=== PATIENT | female | born 1990 | race Caucasian/White ===

== ENCOUNTER 2017-09-20 20:50 | Inpatient (IN) | payer OTHER ==
[~2017-09-20 20:50] MED LIST: AMPICILLIN - 1 GM in SODIUM CHLORIDE 100 ML IVPB SCH
[2017-09-20 22:04] LABS: BASO % 1.1 % (0-2.0); HEMATOCRIT 36.6 % (32.4-45.2); HEMOGLOBIN 12.7 GM/dL (10.7-15.3); LYMPH % 26.5 % (8-40); MCH 30.6 pg (25.7-33.7); MCHC 34.7 g/dl (32.0-36.0); MEAN CELL VOLUME 88.3 fl (80-96); MONO % 7.3 % (3.8-10.2); NEUT % 64.1 % (42.8-82.8); PLATELET COUNT 227 K/MM3 (134-434); RBC 4.15 M/mm3 (3.60-5.2); RDW 14.8 % (11.6-15.6); WHITE BLOOD COUNT 9.2 K/mm3 (4.0-10.0)
[2017-09-20 22:26] LABS: ANION GAP 10 (8-16); BLOOD UREA NITROGEN 9 mg/dL (7-18); CALCIUM 8.3 mg/dL (8.5-10.1); CHLORIDE 107 mmol/L (98-107); CO2 21 mmol/L (21-32); CREATININE 0.6 mg/dL (0.55-1.02); GLUCOSE,RANDOM 111 mg/dL (74-106); POTASSIUM 3.5 mmol/L (3.5-5.1); SODIUM 138 mmol/L (136-145)
[2017-09-20 22:27] LABS: INR 0.96 (0.82-1.09); PROTHROMBIN TIME (PATIENT) 10.8 SEC (9.7-13.0)
[2017-09-20 22:30] LABS: ACTIVATED PTT 30.9 SECONDS (26.9-34.4)
[2017-09-20] MEDS ORDERED: DINOPROSTONE 10 MG VAGINAL SUPPOSITORY VG ONE (22:45)
[2017-09-20] MEDS ORDERED: LACTATED RINGERS SOLUTION 1,000 ML IV SCH (22:45)
[2017-09-20 23:09] VITALS: BMI 34.7
[2017-09-20] MEDS ORDERED: AMPICILLIN SODIUM 2 GM VIAL ONE (23:32)
[2017-09-20] MEDS ORDERED: AMPICILLIN - 2 GM in SODIUM CHLORIDE 100 ML IVPB ONE (23:45)
--- NOTE | 2017-09-21 00:30 | HP ---
Past Medical History - Admission History of Present Illness: 27 yo LMP 01/01/18, EDC 09/17/17, @ 40 weeks gestation, admitted for induction of labor. History Source: Patient Limitations to Obtaining History: No Limitations - Past Medical History ...: 5 ...Para: 2 ...Term: 2 ...: 0 ...Spon : 2 ...Induced : 0 ...Multiple Gestation: 0 ...LMP: 01/01/17 ... Weeks Gestation by Dates: 37.3 ...EDC by Dates: 10/08/17 ...EDC by Sono: 09/17/17 - Past Surgical History Past Surgical History: Yes: None Hx Myomectomy: No Hx Transabdominal Cerclage: No - Smoking History Smoking history: Never smoked Have you smoked in the past 12 months: No - Alcohol/Substance Use Hx Alcohol Use: No History of Substance Use: reports: None - Social History Usual Living Arrangement: Yes: With Significant Other History of Recent Travel: No Home Medications - Allergies Allergies/Adverse Reactions: Allergies Allergy/AdvReac Type Severity Reaction Status Date / Time No Known Allergies Allergy Verified 09/17/17 17:33 - Home Medications Home Medications: Ambulatory Orders Vit/Iron Fum/Folic AC [ Tablet] 1 each PO DAILY #60 tablet Ferrous Sulfate 325 mg PO DAILY 09/17/17 Review of Systems - Review of Systems Constitutional: reports: No Symptoms Eyes: reports: No Symptoms HENT: reports: No Symptoms Neck: reports: No Symptoms Cardiovascular: reports: No Symptoms Respiratory: reports: No Symptoms Gastrointestinal: reports: No Symptoms Genitourinary: reports: No Symptoms Breasts: reports: No Symptoms Reported Musculoskeletal: reports: No Symptoms Integumentary: reports: No Symptoms Neurological: reports: No Symptoms Endocrine: reports: No Symptoms Hematology/Lymphatic: reports: No Symptoms Psychiatric: reports: No Symptoms Pain Intensity: 0 Physical Exam - Maternity Vital Signs: Vital Signs Temperature 98.1 F 09/20/17 22:00 Pulse Rate 78 09/20/17 22:00 Respiratory Rate 18 09/20/17 22:00 Blood Pressure 137/75 09/20/17 22:00 O2 Sat by Pulse Oximetry (%) Constitutional: Yes: Well Nourished Eyes: Yes: Conjunctiva Clear HENT: Yes: Atraumatic Neck: Yes: Supple Cardiovascular: Yes: Regular Rate and Rhythm Lungs: Clear to auscultation - Abdominal Exam/OB Number of Fetuses: Single Presentation: Vertex Intensity: Unaware - Vaginal Exam/OB Dilatation (cm): 3-4 Effacement (%): 70 Amniotic Membrane Status: Intact Station: -2 - Physical Exam Musculoskeletal: Yes: WNL Extremities: Yes: WNL ...Motor Strength: WNL Psychiatric: Yes: Alert, Oriented - Labs Lab Results: CBC, BMP 09/20/17 21:30 09/20/17 21:30 Problem List - Problems (1) 40 weeks gestation of Code(s): Z3A.40 - 40 WEEKS GESTATION OF Assessment/Plan IUP @ 40 weeks gestation Admit for cervidil induction
[2017-09-21] MEDS ORDERED: FENTANYL/BUPIVACAINE/NS/PF - PCEA - 50 ML DISP.SYRIN EP ONE (03:18)
[2017-09-21] MEDS ORDERED: AMPICILLIN SODIUM 1 GM VIAL ONE (03:18)
[2017-09-21] MEDS ORDERED: AMPICILLIN - 1 GM in SODIUM CHLORIDE 100 ML IVPB SCH (03:30)
[2017-09-21] MEDS ORDERED: WITCH HAZEL 50% (TUCKS) 40 PAD/JAR PAD TP PRN (03:36)
[2017-09-21] MEDS ORDERED: METHYLERGONOVINE MALEATE 0.2 MG/1 ML AMP IM PRN (03:36)
[2017-09-21] MEDS ORDERED: BISACODYL 10 MG SUPP.RECT RC PRN (03:36)
[2017-09-21] MEDS ORDERED: BENZOCAINE 28 GM HEMORRHOIDAL OINTMENT TP PRN (03:36)
[2017-09-21] MEDS ORDERED: BENZOCAINE 20% 57 GM BOTTLE TP PRN (03:36)
--- NOTE | 2017-09-21 03:41 | PN ---
Delivery - Delivery Vaginal Delivery: Spontaneous Episiotomy/Laceration: None EBL (cc): 250 Delivery, Single - Feeding Plan Initial Plan: Elected not to breastfeed exclusively throughout hospitalization Remarks - Remarks Remarks: Normal spontaneous vaginal delivery of a live infant girl over intact perineum. Nose / Oropharynx suctioned @ perineum. Cord clamped and cut. Placenta expelled spontaneously intact.
[2017-09-21] MEDS ORDERED: OXYTOCIN 20 UNITS in 0.9% NS 20 UNIT/1,000 ML INFUS.BAG IV SCH (03:45)
[2017-09-21] MEDS: ACETAMINOPHEN 325 MG TABLET (FP) PO PRN (03:45)
[2017-09-21] MEDS: IBUPROFEN 600 MG TABLET (FP) PO PRN (03:45)
[2017-09-21] MEDS ORDERED: ACETAMINOPHEN 325 MG TABLET (FP) ONE (03:47)
[2017-09-21] MEDS ORDERED: IBUPROFEN 600 MG TABLET (FP) PO ONE (03:47)
[2017-09-21] MEDS ORDERED: OXYTOCIN 20 UNITS in 0.9% NS 20 UNIT/1,000 ML INFUS.BAG IV ONE (04:31)
[2017-09-21] MEDS: FERROUS SO4 325 MG TABLET (FP) PO SCH ×3 (08:26→16:54)
[2017-09-21] MEDS: PRENATAL VITAMINS W/ FOLIC ACID TABLET (FP) PO SCH (10:42)
[2017-09-22 07:36] LABS: EOS % 1.5 % (0-4.5); HEMATOCRIT 37.3 % (32.4-45.2); HEMOGLOBIN 12.6 GM/dL (10.7-15.3); LYMPH % 33.1 % (8-40); MCHC 33.7 g/dl (32.0-36.0); MEAN CELL VOLUME 88.9 fl (80-96); MEAN PLT VOLUME 8.1 fl (7.5-11.1); MONO % 7.6 % (3.8-10.2); NEUT % 56.8 % (42.8-82.8); PLATELET COUNT 202 K/MM3 (134-434); RBC 4.19 M/mm3 (3.60-5.2); RDW 14.7 % (11.6-15.6); WHITE BLOOD COUNT 9.6 K/mm3 (4.0-10.0)
[2017-09-22] MEDS: FERROUS SO4 325 MG TABLET (FP) PO SCH ×3 (08:08→17:22)
--- NOTE | 2017-09-22 08:09 | PN ---
Progress Note (short form) - Note Progress Note: ppd 1 doing well, no c/o, no excess vaginal bleeding CBC, BMP 09/22/17 07:21 09/20/17 21:30 CBC, BMP 09/22/17 07:21 09/20/17 21:30 Last Vital Signs Temp Pulse Resp BP Pulse Ox 97.8 F 60 20 119/72 09/22/17 01:00 09/22/17 01:00 09/22/17 01:00 09/22/17 01:00 uterus firm, non tender lochia mild no calf tenderness plan ambulate , d/c home in am
[2017-09-22] MEDS: PRENATAL VITAMINS W/ FOLIC ACID TABLET (FP) PO SCH (09:36)
[2017-09-22] MEDS ORDERED: SENNOSIDES/DOCUSATE COMBO (SENNA PLUS) TABLET (UD) PO PRN (22:00)
[2017-09-23] MEDS: ACETAMINOPHEN 325 MG TABLET (FP) PO PRN (00:02)
[2017-09-23] MEDS: IBUPROFEN 600 MG TABLET (FP) PO PRN (00:02)
[2017-09-23] MEDS: FERROUS SO4 325 MG TABLET (FP) PO SCH ×2 (08:05→12:30)
[2017-09-23] MEDS: PRENATAL VITAMINS W/ FOLIC ACID TABLET (FP) PO SCH (10:00)
--- NOTE | 2017-09-23 11:18 | PN ---
Post Progress Note - Subjective Subjective: Pt feeling well. Breast and bottle feeding. Plans for BTL for contraception ( interval tubal ligation). Post Day: 2 Type of Delivery: Vital Signs: Vital Signs Temperature 97.4 F L 09/22/17 21:04 Pulse Rate 64 09/22/17 21:04 Respiratory Rate 20 09/22/17 21:04 Blood Pressure 121/70 09/22/17 21:04 O2 Sat by Pulse Oximetry (%) Breast Exam: Yes: Soft Uterus: Yes: Fundus Firm Abdomen/GI: Yes: Abdomen soft Lochia: Yes: Rubra Lochia, amount: Small Activity: Ambulating - Labs Labs: CBC WBC 9.6 K/mm3 (4.0-10.0) 09/22/17 07:21 RBC 4.19 M/mm3 (3.60-5.2) 09/22/17 07:21 Hgb 12.6 GM/dL (10.7-15.3) 09/22/17 07:21 Hct 37.3 % (32.4-45.2) 09/22/17 07:21 MCV 88.9 fl (80-96) 09/22/17 07:21 MCH 30.0 pg (25.7-33.7) 09/22/17 07:21 MCHC 33.7 g/dl (32.0-36.0) 09/22/17 07:21 RDW 14.7 % (11.6-15.6) 09/22/17 07:21 Plt Count 202 K/MM3 (134-434) 09/22/17 07:21 MPV 8.1 fl (7.5-11.1) 09/22/17 07:21 Neutrophils % 56.8 % (42.8-82.8) 09/22/17 07:21 Lymphocytes % 33.1 % (8-40) D 09/22/17 07:21 Monocytes % 7.6 % (3.8-10.2) 09/22/17 07:21 Eosinophils % 1.5 % (0-4.5) 09/22/17 07:21 Basophils % 1.0 % (0-2.0) 09/22/17 07:21 Problem List - Problems (1) care following vaginal delivery Assessment/Plan: Pt PPD#2 s/p stable for discharge continue vitamins f/u 2 weeks at [facility] to schedule tubal ligation Dr. Campuzano Code(s): Z39.2 - ENCOUNTER FOR ROUTINE FOLLOW-UP
[2017-09-23 12:38] VITALS: BP 114/63; PULSE 68; TEMP 97.9
== END 2017-09-23 12:40 | disposition home or self-care (01) | DRG 560 ==
LOC: JLDR 20:50 → J3W 09-21 05:41
PROVIDERS: ADMIT Obstetrics & Gynecology; ATTEND Obstetrics & Gynecology
PROC: 10E0XZZ Delivery of Products of Conception, External Approach (ICD-10-PCS; principal; 2017-09-20)
DX: O48.0 Post-term pregnancy (principal); Z3A.40 40 weeks gestation of pregnancy; Z37.0 Single live birth
CPT/HCPCS: 36415; 59409; 80048; 85025; 85461; 85610; 85730; 86593; 86850; 86900; 86901; 86999